=== PATIENT | male | born 1935 | race Caucasian/White ===

== ENCOUNTER 2023-10-12 07:29 | Day surgery (SDC) | payer OTHER ==
--- NOTE | 2023-09-27 14:26 | RAD REPORT ---
EXAM DESCRIPTION: Francia Collins And Cristian (2 Views)09/27/2023 1:54 pm CLINICAL HISTORY: Preop. Hypertension COMPARISON: None FINDINGS: The lungs appear clear of acute infiltrate. The heart is mildly enlarged. Lungs are mildl y hyperaerated IMPRESSION: No acute abnormalities displayed
[2023-09-27 15:02] LABS: Absolute Basophils 0.1 K/uL (0-0.5); Absolute Eosinophils 0.2 K/uL (0-0.5); Absolute Lymphocytes (CBC) 5.9 K/uL (0.7-4.9); Absolute Monocytes 0.5 K/uL (0.1-1.3); Absolute Neutrophil 3.1 K/uL (1.8-8.0); Basophils % 1.2 % (0-1.3); Eosinophils % 2.1 % (0-4.4); Hematocrit 38.3 % (39.6-49.0); Hemoglobin 12.5 g/dL (13.6-17.9); Lymphocytes % 59.4 % (15.3-44.8); MCH 30.5 pg (27.0-35.0); MCHC 32.7 g/dL (32.0-36.0); MCV 93.2 fL (80-100); MPV 9.8 fL (7.6-11.3); Monocytes % 5.5 % (3.3-12.3); Neutrophils % 31.8 % (41.7-73.7); Nucleated Red Blood Cells % 0.1 % (0-0); Platelets 216 thou/uL (152-406); RBC Red Blood Cell Count 4.11 M/uL (4.33-5.43); Red Cell Distribution Width 16.2 % (12.1-15.2)
[2023-09-27 15:15] LABS: PT Prothrombin Time 11.4 SECONDS (9.5-12.5); Protime INR 1.04
[2023-09-27 15:18] LABS: Anion Gap 8.3 mEq/L (5.0-15.0); Potassium 4.3 mEq/L (3.5-5.1)
[2023-10-12] MEDS ORDERED: ONDANSETRON 4 MG/2 ML VIAL ONE (08:04)
[2023-10-12] MEDS ORDERED: ROCURONIUM 50 MG/5 ML VIAL IV ONE (08:04)
[2023-10-12] MEDS ORDERED: FENTANYL CITR 100 MCG/2 ML ONE (08:04)
[2023-10-12] MEDS ORDERED: LIDOCAINE 1% MPF 5 ML VIAL ONE (08:04)
[2023-10-12] MEDS ORDERED: propofoL 200 MG/20 ML VIAL IV ONE (08:04)
[2023-10-12] MEDS: Ringers Lactate 1,000 ML IV ONE (08:05)
[2023-10-12] MEDS: CEFAZOLIN SODIUM 2 GM/VIAL ONE (08:21)
[2023-10-12] MEDS ORDERED: EPHEDRINE SULF 50 MG/ML VIAL ONE (08:38)
[2023-10-12] MEDS ORDERED: CODEINE 30MG/APAP 300MG TAB PO PRN (09:32)
[2023-10-12] MEDS ORDERED: PHENAZOPYRIDINE 100MG TAB PO ONE (09:32)
[2023-10-12 10:25] VITALS: TEMP 97.6
[2023-10-12 12:20] VITALS: BP 157/73; O2SAT 98
--- NOTE | 2023-10-12 19:37 | OP ---
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 2.Benign prostatic hypertrophy with lower urinary tract obstruction and symptoms. 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 2.Benign prostatic hypertrophy with lower urinary tract obstruction and symptoms. 3.Paraphimosis. Principal Procedures: 1.Transrectal ultrasound-guided insertion of SpaceOAR gel. 2.Prostatic urethral lift/UroLift with 6 implants placed. 3.Urethral Wheeler catheter placement. 4.Reduction of paraphimosis. Indication For Procedure: Mr. 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 He was counseled on options for further management of his condition and elected to proc eed with radiation therapy. SpaceOAR gel was requested in advance of radiation therapy, and given alicia balderas significant obstructive lower urinary symptoms due to BPH, I recommended pre-radiation treatment wi th UroLift as opposed to simple placement of fiducial markers, in order to improve his LUTS in prepar ation for what likely is to be an intensive radiation therapy setting. Procedure In Detail: The patient was consented in the preoperative holding area before being transfe rred to the operative suite where general anesthesia was induced. He was given Ancef 2 g IV antimicr obial prophylaxis, and Pneumoboots were provided for DVT prophylaxis. He was placed in the high lith otomy position, padded and secured to the table appropriately. His scrotum was elevated out of the p erineal region using an Ioban drape, and the transrectal ultrasound probe was placed via his anus int o his rectum with ease, and the prostate visualized from apex to base in the axial as well as sagitta l dimensions with the perineal region also visible in its entirety. A stepper device was used to hol d the ultrasound probe in place and manipulated through the different sections from apex to base. Hi s perineum was prepped with Betadine and the case was begun using the SpaceOAR injection needle attac hed to a syringe of saline to insert the needle via the perineum and navigated ultimately into the sp ilan of Retzius. There was a white line that was visible and demonstrable in the mid zone of the pros nguyen and extending into the base, but at the apex of the prostate in the midline, there was noted to be what appeared to be significant extraprostatic extension of disease that obliterated the white elian e of Denonvilliers' space. As a result, when inserting the needle under ultrasound guidance, I had t o navigate the needle through this mass to avoid the rectal hump in its entirety, but ultimately, onc e I surpassed the mass, I was able to get it into the white stripe visible ultrasonographically consi stent with Denonvilliers' space beneath the prostate and above the rectal wall. There, I was able to navigate into a good position within the mid zone of the prostate and switched to axial imaging in o rder to ensure the needle was directly in the midline. This was confirmed, and so I aspirated the sy ringe in that location to ensure no blood or succus was obtained, and then injected a couple of cc of saline which did beautifully and symmetrically separate the prostate from the rectal wall and hydrod issect in a nice midline symmetric fashion. As a result, I switched the saline needle for the compos ite SpaceOAR injection materials, and I began to slowly inject the solution and create a beautiful sp ilan between the rectum and the peripheral zone of the prostate as evidenced ultrasonographically in b oth axial as well as sagittal dimensions. I then removed the SpaceOAR needle and took the patient ou t of the high lithotomy position and repositioned him in low lithotomy for the UroLift. The patient in the low lithotomy position was then prepped with Hibiclens and draped in standard [facility] ion in preparation for the UroLift. The 20-[employer] Lucian UroLift sheath and a visual obturator was used to traverse the urethra and into the bladder with relative ease. The previously observed significant in terdigitating lateral lobar hypertrophy with a median lobe that extended into the right lateral wall was again observed with a large left lateral sulcus. As a result, I entered the bladder and decompre ssed it of fluid and urine and then switched the visual obturator for the first UroLift delivery kaleb ce and an implant. I then targeted the patient's left lateral wall approximately 1.5 to 2 cm distal to the bladder neck at around the 1 to 2 o'clock position, and then angled the scope about 15 degrees laterally before pulling the trigger the first time delivering the needle through the substance of t he prostate. I then advanced the scope angling it more laterally another 15 degrees to ensure the ne edle tip was delivered outside the capsular surface of the prostate. At this point, I pulled the tri gger a second time delivering the capsular tab and partially retracting the needle. I then pulled th e trigger a third time tensioning the suture and completely retracting the needle before advancing th e scope back toward the midline and then 2 to 3 mm toward the bladder neck until the white line of th e monofilament was centered in the delivery bay. At this point, I pulled the trigger a fourth time d elivering the urethral endpiece and beautifully lateralizing the tissue in that location. I then adv anced the scope back into the bladder and switched the spent UroLift implant for a new implant. This second implant I targeted at the patient's bladder neck at around the 10 o'clock position about 1.5 cm distal to the bladder neck and again beautifully created an opening at the bladder neck once those 2 implants were placed. I then turned my attention to the apex, where a third and a fourth implant were placed at the left apex and the right apex accordingly at the level of the verumontanum. I then surveyed the channel created using a visual obturator and there was residual tissue emanating from t he patient's right lateral wall, mostly in the region of the mid zone of the prostate at the bladder neck owing to the median lobar extension from the right lateral lobe. There was additionally a sligh t degree of intraluminal intrusion coming from the left side of the prostate in the mid zone between the apical and the base implants previously placed. So I placed a fifth implant on the patient's lef t side in that intervening tissue at about the 3 o'clock position beautifully lateralizing that tissu e and leaving only the intruding median lobar tissue from the right lateral wall. As a result, I uti lized a sixth and final implant targeting that median lobar tissue starting by placing the device int o the sulcus and then elevating and pulling the device along with the median lobe back into the prost atic fossa, ultimately hitting it against the right lateral wall of the prostate before going through the sequence of placement of the implant in that location and beautifully pinning the median lobe of f to the right side creating a beautiful continuous anterior channel as visible from the verumontanum and through the bladder neck. There was a degree of hematuria that was present during the procedure and so I irrigated the bladder with the scope before ultimately placing a 20-[employer]ian urethral Wheeler c atheter with ease into his bladder. I then irrigated the bladder using a 60 cc catheter tip syringe to ensure no significant hematuria or clots, and the returning efflux of irrigant fluid and urine was very light pink. As a result, with about 50 cc of sterile water placed in the balloon and the efflu x of urine and fluid light pink to clear, the patient's catheter was connected to a leg bag, and he w as taken out of the lithotomy position. He was then awakened from general anesthesia, transferred to a stretcher, and then transferred to the recovery room in good condition. Complications: None. Discharge Disposition: He should follow up with Dr. Choi, the radiation oncologist, to begin rad iation therapy likely in about 3 to 4 weeks, once he has had an opportunity to heal from the UroLift and his symptoms have returned to a new and improved baseline hopefully. Subsequent followup should be established with me in approximately 1 month. Of note, the patient will be discharged with the ur ethral Wheeler catheter. As such, he will be taught how to remove the catheter tomorrow morning at [facility] if they are comfortable, but he may seek followup in the office for an active voiding trial. If th ey are not comfortable, removing it at home and undergoing a passive voiding trial WR/MODL Voice ID: [id number] Report ID: [id number]
== END 2023-10-12 11:11 | disposition home or self-care (01) ==
LOC: OR 07:29
PROVIDERS: ATTEND Urology
PROC: 0VH43YZ Insertion of Other Device into Prostate and Seminal Vesicles, Percutaneous Approach (ICD-10-PCS; 2023-10-12)
PROC: 0VNSXZZ Release Penis, External Approach (ICD-10-PCS; 2023-10-12)
PROC: 0T7D8DZ Dilation of Urethra with Intraluminal Device, Via Natural or Artificial Opening Endoscopic (ICD-10-PCS; principal; 2023-10-12 08:30)
DX: C61 Malignant neoplasm of prostate (principal); N40.1 Benign prostatic hyperplasia with lower urinary tract symptoms; N13.8 Other obstructive and reflux uropathy; N47.2 Paraphimosis
CPT/HCPCS: 87088; 85025; 87086; 80048; 36415; 85610; 71046; 55874; 54450; J2704; J2001; J3010; J2405; J7120; C9740